=== PATIENT | female | born 2000 | race Caucasian/White ===

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

== ENCOUNTER 2018-08-04 07:22 | Emergency (ER) | payer SELFPAY ==
[2018-08-04 07:37] VITALS: BP 153/77
[2018-08-04] MEDS ORDERED: Ibuprofen TAB* 600 MG PO ONE (07:47)
--- NOTE | 2018-08-04 07:52 | UC ---
Throat Pain/Nasal Ron HPI - HPI Summary HPI Summary: 17-year-old female comes in with a chief complaint of bodyaches fevers chills sore throat ear pain cough chest congestion. Started 2 days ago. She complains of neck pain and back pain along with all of her body aches. Her boyfriend is ill with a similar condition. She took ibuprofen last night which did help with the body aches. - History of Current Complaint Chief Complaint: UCRespiratory Stated Complaint: ACHE,FEVER,ST, BI LAT EAR PAIN Time Seen by Provider: 08/04/18 07:47 Hx Last Menstrual Period: 07/14/18 Pain Intensity: 8 - Allergies/Home Medications Allergies/Adverse Reactions: Allergies Allergy/AdvReac Type Severity Reaction Status Date / Time lamotrigine Allergy Unknown Verified 08/04/18 07:38 Reaction Details Home Medications: Home Medications Dm/PE/Acetaminophen/Doxylamine [Vicks Nyquil Severe Cold-Flu] 1 each PO ONCE PRN 08/04/18 [History Confirmed 08/04/18] PMH/Surg Hx/FS Hx/Imm Hx Previously Healthy: Yes - Surgical History Surgical History: None - Family History Known Family History: Positive: None - Social History Alcohol Use: Occasionally Substance Use Type: None Substance Use Comment - Amount & Last Used: hx mj Smoking Status (MU): Never Smoked Tobacco - Immunization History Most Recent Influenza Vaccination: 2011 Most Recent Pneumonia Vaccination: never Review of Systems All Other Systems Reviewed And Are Negative: Yes Constitutional: Positive: Fever, Chills Skin: Positive: Negative Eyes: Positive: Negative ENT: Positive: Sore Throat, Ear Ache, Nasal Discharge, Sinus Congestion, Sinus Pain/Tenderness Respiratory: Positive: Cough Cardiovascular: Positive: Negative Gastrointestinal: Positive: Negative Motor: Positive: Negative Neurovascular: Positive: Negative Musculoskeletal: Positive: Myalgia Neurological: Positive: Headache Psychological: Positive: Negative Is Patient Immunocompromised?: No Physical Exam Triage Information Reviewed: Yes Appearance: No Pain Distress, Well-Nourished, Ill-Appearing - mild Vital Signs: Initial Vital Signs Temp 98.3 F 08/04/18 07:33 Pulse 125 08/04/18 07:33 Resp 22 08/04/18 07:33 BP 153/77 08/04/18 07:33 Pulse Ox 98 08/04/18 07:33 Vital Signs Reviewed: Yes Eye Exam: Normal Eyes: Positive: Conjunctiva Clear ENT: Positive: Pharyngeal erythema, Nasal congestion, Nasal drainage, TM bulging - rt, TM red - rt, Uvula midline. Negative: Tonsillar exudate Neck exam: Normal Neck: Positive: Supple - pain with flexion but, not with extension. Has generalized body aches Respiratory: Positive: Lungs clear, Normal breath sounds, No respiratory distress Cardiovascular: Positive: Tachycardia Musculoskeletal Exam: Normal Musculoskeletal: Positive: Strength Intact, ROM Intact Neurological Exam: Normal Neurological: Positive: Alert, Muscle Tone Normal Psychological Exam: Normal Psychological: Positive: Normal Response To Family, Age Appropriate Behavior Skin Exam: Normal Throat Pain/Nasal Course/Dx - Course Course Of Treatment: Both influenza's and strep were negative. Patient received ibuprofen in the clinic without any relief of her body aches or neck and back pain. Because of the influenza's the strep being negative and patient having neck and back pain I recommended going to the emergency department for further evaluation. The possibility of meningitis was discussed with the patient and her mother. - Differential Dx/Diagnosis Provider Diagnosis: Right otitis media, Myalgia, Neck pain, Back pain Discharge - Sign-Out/Discharge Documenting (check all that apply): Patient Departure All imaging exams completed and their final reports reviewed: No Studies - Discharge Plan Condition: Stable Disposition: HOME-RECOMMEND TO ED Prescriptions: Amoxicillin/Clavulanate TAB* [Augmentin TAB 875*] 875 mg PO BID #20 tab Patient Education Materials: Ear Infection (ED), Musculoskeletal Pain (ED) Referrals: [facility] [Outside] Additional Instructions: GO DIRECTLY TO THE EMERGENCY DEPARTMENT FOR FURTHER EVALUATION. - Billing Disposition and Condition Condition: STABLE Disposition: Home-Recommend to ED
[2018-08-04 08:11] LABS: Influenza A Molecular NEGATIVE (Negative); Influenza B Molecular NEGATIVE (Negative)
== END 2018-08-04 08:44 | disposition home health service (06) ==
LOC: UCCORT 07:22
DX: M79.10 Myalgia, unspecified site (principal); M54.2 Cervicalgia; M54.9 Dorsalgia, unspecified; H66.91 Otitis media, unspecified, right ear; R05 Cough; R09.89 Other specified symptoms and signs involving the circulatory and respiratory systems; R51 Headache; R09.81 Nasal congestion; J02.9 Acute pharyngitis, unspecified; Z88.8 Allergy status to other drugs, medicaments and biological substances
CPT/HCPCS: 87651; 99212; A9270-GY; G0463

== ENCOUNTER 2019-01-20 14:37 | Emergency (ER) | payer OTHER ==
[2019-01-20 14:48] VITALS: BP 133/72
--- NOTE | 2019-01-20 14:54 | UC ---
Ear Complaint HPI - HPI Summary HPI Summary: Pt has right ear pain which started this week after swimming a lot. She has not had any recent URI symptoms. - History of Current Complaint Chief Complaint: UCEar Stated Complaint: RT EAR COMPLAINT Time Seen by Provider: 01/20/19 14:47 Hx Obtained From: Patient Hx Last Menstrual Period: 01/15/19 ?: No Onset/Duration: Gradual Onset Severity Initially: Mild Severity Currently: Moderate Pain Intensity: 8 Aggravating Factors: Other - Pressure Alleviating Factors: Nothing - Allergies/Home Medications Allergies/Adverse Reactions: Allergies Allergy/AdvReac Type Severity Reaction Status Date / Time lamotrigine Allergy Unknown Verified 01/20/19 14:49 Reaction Details Home Medications: Home Medications Acetaminophen [Tylenol Extra Strength] 1 tab PO ONCE 01/20/19 [History Confirmed 01/20/19] Ibuprofen ADULT LIQ* [Motrin LIQ ADULT*] 1 tab PO ONCE 01/20/19 [History Confirmed 01/20/19] PMH/Surg Hx/FS Hx/Imm Hx Previously Healthy: Yes Respiratory History: Asthma Other Psychological History: ADHD - Surgical History Surgical History: None - Family History Known Family History: Positive: None - Social History Alcohol Use: Occasionally Substance Use Type: None Substance Use Comment - Amount & Last Used: hx mj Smoking Status (MU): Never Smoked Tobacco - Immunization History Most Recent Influenza Vaccination: 2011 Most Recent Pneumonia Vaccination: never Review of Systems All Other Systems Reviewed And Are Negative: Yes ENT: Positive: Ear Ache Is Patient Immunocompromised?: No Physical Exam Triage Information Reviewed: Yes Appearance: Well-Appearing, No Pain Distress, Well-Nourished Vital Signs: Initial Vital Signs Temp 98.4 F 01/20/19 14:45 Pulse 80 01/20/19 14:45 Resp 18 01/20/19 14:45 BP 133/72 01/20/19 14:45 Pulse Ox 100 01/20/19 14:45 Vital Signs Reviewed: Yes Eyes: Positive: Conjunctiva Clear ENT: Positive: Pharynx normal, TM red - Right TM with erythema, poor landmarks and light reflex, ear canal swollen with erythema, no drainage. Right tragus tender and with movement of the right ear. Left TM normal Neck: Positive: Supple, Nontender, No Lymphadenopathy Respiratory: Positive: Lungs clear, Normal breath sounds, No respiratory distress, No accessory muscle use Cardiovascular: Positive: RRR, No Murmur, Pulses Normal, Brisk Capillary Refill Musculoskeletal Exam: Normal Neurological Exam: Normal Psychological Exam: Normal Skin Exam: Normal Ear Complaint Course/Dx - Course Course Of Treatment: Comfortable here. - Differential Dx/Diagnosis Provider Diagnosis: Right otitis media, Right otitis externa Discharge - Sign-Out/Discharge Documenting (check all that apply): Patient Departure All imaging exams completed and their final reports reviewed: No Studies - Discharge Plan Condition: Fair Disposition: HOME Prescriptions: Amoxicillin PO (*) [Amoxicillin 875 MG (*)] 875 mg PO BID 10 Days #20 tab Neomyc/Polym/HC 1% OTIC SUSP* [Cortisporin Otic Susp 1%*] 4 drop RIGHT EAR QID 7 Days #1 btl Patient Education Materials: Otitis Externa (DC), Ear Infection (ED) Referrals: [facility] [Outside] No Primary Care Phys,NOPCP [Primary Care Provider] - Additional Instructions: Tylenol/Motrin for pain as directed. Follow up with your doctor or [facility] if no improvement in 4-5 days. Keep your ears dry and no swimming underwater for one week until better. - Billing Disposition and Condition Condition: FAIR Disposition: Home
== END 2019-01-20 15:05 | disposition home or self-care (01) ==
LOC: UCCORT 14:37
DX: H66.91 Otitis media, unspecified, right ear (principal); H60.91 Unspecified otitis externa, right ear
CPT/HCPCS: 99212; G0463

== ENCOUNTER 2019-01-26 12:12 | Emergency (ER) | payer OTHER ==
[2019-01-26 13:21] VITALS: BP 136/77
--- NOTE | 2019-01-26 13:33 | UC ---
Ear Complaint HPI - HPI Summary HPI Summary: Pt presents with c/o continued right ear pain. Pt was seen here on 01/20/19 and diagnosed with regla externa and otitis media and given PO amox and ear drops- pt is unsure what they were. Pt states that the pain and swelling have not improved and then went to [place] ER 2-3 days after being seen here and was given oxycodone and percocet for pain management. Pt was also seen by PCP a day later as her symptoms have not improved - History of Current Complaint Chief Complaint: UCEar Stated Complaint: RT EAR PAIN Time Seen by Provider: 01/26/19 13:21 Hx Obtained From: Patient Hx Last Menstrual Period: January 14 ?: No Onset/Duration: Gradual Onset, Lasting Days, Still Present, Worse Since - onset Severity Initially: Moderate Severity Currently: Severe Pain Intensity: 8 Aggravating Factors: Other - touch Associated Signs/Symptoms: Positive: Discharge, Swelling @ - Allergies/Home Medications Allergies/Adverse Reactions: Allergies Allergy/AdvReac Type Severity Reaction Status Date / Time lamotrigine Allergy Unknown Verified 01/20/19 14:49 Reaction Details PMH/Surg Hx/FS Hx/Imm Hx Previously Healthy: Yes - Surgical History Surgical History: None - Family History Known Family History: Positive: None - Social History Lives: With Family Alcohol Use: Rare Substance Use Type: None Substance Use Comment - Amount & Last Used: hx mj Smoking Status (MU): Never Smoked Tobacco Have You Smoked in the Last Year: No - Immunization History Most Recent Influenza Vaccination: 2011 Most Recent Pneumonia Vaccination: never Review of Systems All Other Systems Reviewed And Are Negative: Yes Constitutional: Positive: Negative Skin: Positive: Negative Eyes: Positive: Negative ENT: Positive: Ear Ache - right ear, swelling and small amount of yellow/clear discharge Respiratory: Positive: Negative Cardiovascular: Positive: Negative Gastrointestinal: Positive: Negative Genitourinary: Positive: Negative Motor: Positive: Negative Neurovascular: Positive: Negative Musculoskeletal: Positive: Negative Neurological: Positive: Negative Psychological: Positive: Negative Is Patient Immunocompromised?: No Physical Exam Triage Information Reviewed: Yes Appearance: Well-Appearing, Pain Distress - with ear exam Vital Signs: Initial Vital Signs Temp 97.6 F 01/26/19 13:15 Pulse 78 01/26/19 13:15 Resp 18 01/26/19 13:15 BP 136/77 01/26/19 13:15 Pulse Ox 100 01/26/19 13:15 Vital Signs Reviewed: Yes Eye Exam: Normal ENT: Positive: Other - right ear outer canal swollen with small amount of clear yellow discharge, tragal tenderness Dental Exam: Normal Neck: Positive: Enlarged Nodes @ - right submaxillary Respiratory Exam: Normal Cardiovascular Exam: Normal Musculoskeletal Exam: Normal Neurological Exam: Normal Psychological Exam: Normal Skin Exam: Normal Ear Complaint Course/Dx - Differential Dx/Diagnosis Differential Diagnosis/HQI/PQRI: Cellulitis, Otitis Externa Provider Diagnosis: Otitis externa Discharge - Sign-Out/Discharge Documenting (check all that apply): Patient Departure All imaging exams completed and their final reports reviewed: No Studies - Discharge Plan Condition: Stable Disposition: HOME Prescriptions: Neomyc/Polym/HC 1% OTIC SUSP* [Cortisporin Otic Susp 1%*] 4 drop RIGHT EAR Q6H 7 Days #1 btl predniSONE TAB* [Deltasone 20 MG TAB*] 20 mg PO DAILY #4 tab Patient Education Materials: Otitis Externa (ED) Referrals: Pedro Luis Galvan MD [Medical Doctor] - As Soon As Possible Genia Corbett NP [Primary Care Provider] - As Soon As Possible Soto Bentley MD [Medical Doctor] - As Soon As Possible Additional Instructions: Please follow up with either of the ENT specialists we have provided for you. - Billing Disposition and Condition Condition: STABLE Disposition: Home
== END 2019-01-26 13:44 | disposition home or self-care (01) ==
LOC: UCCORT 12:12
DX: H60.91 Unspecified otitis externa, right ear (principal)
CPT/HCPCS: 99212; G0463

== ENCOUNTER 2019-02-04 16:06 | Emergency (ER) | payer OTHER ==
--- NOTE | 2019-02-04 16:38 | UC ---
Ear Complaint HPI - HPI Summary HPI Summary: Patient is a 18 year old female , who present today with for right ear pain. She has been seen here on 01/20- treated with amoxicillin and cortisporin for otitis media and externa, retruned again on 01/26 as it was not getting better and treated with cortisoporin and prednisone for otitis externa and referred to ENT ,that helped and her pain returned again today . Also seen in ER before visit and also saw PCP and plan was to follow up with ENT and has not seen ENT yet and has no scheduled appointment . Denies any fever, chills, cough, chest pain or shortness of breath . Denies any abdominal pain , nausea or vomiting , diarrhea or constipation. She reports that she was swimming a lot and likely got it from that and has not gone swimming since the symptom onset . - History of Current Complaint Stated Complaint: R EAR PAIN Time Seen by Provider: 02/04/19 16:29 Hx Obtained From: Patient Hx Last Menstrual Period: January 14 ?: No - Allergies/Home Medications Allergies/Adverse Reactions: Allergies Allergy/AdvReac Type Severity Reaction Status Date / Time lamotrigine Allergy Unknown Verified 01/20/19 14:49 Reaction Details PMH/Surg Hx/FS Hx/Imm Hx - Additional Past Medical History Additional PMH: Past Medical History:Asthma, ADHD, Depression,anxiety Past Surgical history: none Family history: non contributory Social history; Non smoker, rare alcohol use , [facility]. Previously Healthy: Yes - Surgical History Surgical History: None - Family History Known Family History: Positive: None, Non-Contributory - Social History Alcohol Use: Rare Substance Use Type: None Substance Use Comment - Amount & Last Used: hx mj Smoking Status (MU): Never Smoked Tobacco Have You Smoked in the Last Year: No - Immunization History Most Recent Influenza Vaccination: 2011 Most Recent Pneumonia Vaccination: never Review of Systems All Other Systems Reviewed And Are Negative: Yes Constitutional: Positive: Negative Skin: Positive: Negative Eyes: Positive: Negative ENT: Positive: Ear Ache - right ear Respiratory: Positive: Negative Cardiovascular: Positive: Negative Gastrointestinal: Positive: Negative Genitourinary: Positive: Negative Motor: Positive: Negative Neurovascular: Positive: Negative Musculoskeletal: Positive: Negative Neurological: Positive: Negative Psychological: Positive: Negative Is Patient Immunocompromised?: No Physical Exam - Summary Physical Exam Summary: Vital Signs Reviewed: Yes A+Ox3, no distress Eyes: Conjunctiva Clear ENT: Hearing grossly normal . Right external auditory canal with erythema and tenderness, there is yellowish discharge. Right TM bnot visualized well. Left EAC and TM normal . Pain with palpation of tragus on right No pharyngeal erythema or exudates. No lymphadenopathy. neck: supple Respiratory: lungs clear to auscultation bilaterally . Cardiovascular: RRR, S1S2 normal , no murmur Abdomen: soft, non tender, BS+, no guarding , rigidity or rebound tenderness noted. Musculoskeletal Exam: SALAZAR x 4 without difficulty Neurological: Positive: Alert, ambulatory without difficulty Psychological: Positive: Normal Response To Family Skin: Positive: no rash, no ecchymosis Triage Information Reviewed: Yes Vital Signs Reviewed: Yes Ear Complaint Course/Dx - Course Course Of Treatment: During the visit today, we discussed the findings and further plan to treat it with oral antibiotics and ear drops. Strongly recommend to follow up with ENT. . I will prescribe the medication to the pharmacy . Patient expressed understanding . - Differential Dx/Diagnosis Provider Diagnosis: Otitis externa of right ear Discharge - Sign-Out/Discharge Documenting (check all that apply): Patient Departure All imaging exams completed and their final reports reviewed: No Studies - Discharge Plan Condition: Stable Disposition: HOME Prescriptions: Cephalexin CAP* [Keflex CAP*] 500 mg PO QID 10 Days #40 cap Ciproflox/Dexameth OTIC.SUSP* [Ciprodex OTIC.SUSP*] 1 drop RIGHT EAR BID 10 Days #1 btl Patient Education Materials: Otitis Externa (ED) Referrals: Pedro Luis Galvan MD [Medical Doctor] - VICTORINA Becerril [Primary Care Provider] - 1 Week Additional Instructions: Start using ear drops and oral antibiotics as been prescribed to the pharmacy . Follow up with your primary care doctor in 1 week. Please follow up with ENT in 2 to 3 days. Patients blood pressure slightly high in Urgent care today , plan follow up with PCP for better control Return to Urgent care / ER if symptoms get worse. - Billing Disposition and Condition Condition: STABLE Disposition: Home
[2019-02-04 16:44] VITALS: BP 134/74
--- NOTE | 2019-02-06 11:24 | UC ---
- Progress Note Progress Note: Call placed to Pharmacist at 11:20a. Record from pertinent [facility] encounter reviewed. Rx for cortisporin otic susp. Course/Dx - Diagnoses Provider Diagnoses: Otitis externa of right ear Discharge - Sign-Out/Discharge Documenting (check all that apply): Post-Discharge Follow Up All imaging exams completed and their final reports reviewed: No Studies - Discharge Plan Condition: Stable Disposition: HOME Prescriptions: Cephalexin CAP* [Keflex CAP*] 500 mg PO QID 10 Days #40 cap Ciproflox/Dexameth OTIC.SUSP* [Ciprodex OTIC.SUSP*] 1 drop RIGHT EAR BID 10 Days #1 btl Patient Education Materials: Otitis Externa (ED) Referrals: Pedro Luis Galvan MD [Medical Doctor] - VICTORINA Becerril [Primary Care Provider] - 1 Week Additional Instructions: Start using ear drops and oral antibiotics as been prescribed to the pharmacy . Follow up with your primary care doctor in 1 week. Please follow up with ENT in 2 to 3 days. Patients blood pressure slightly high in Urgent care today , plan follow up with PCP for better control Return to Urgent care / ER if symptoms get worse. - Billing Disposition and Condition Condition: STABLE Disposition: Home
== END 2019-02-04 17:06 | disposition home or self-care (01) ==
LOC: UCCORT 16:06
DX: H60.91 Unspecified otitis externa, right ear (principal)
CPT/HCPCS: 99212; G0463

== ENCOUNTER 2019-07-15 16:22 | Emergency (ER) | payer OTHER ==
[2019-07-15 16:54] VITALS: BP 139/81
--- NOTE | 2019-07-15 17:26 | UC ---
Abdominal Pain Female HPI - HPI Summary HPI Summary: 18-year-old female who complains of abdominal pain starting last evening mostly in the right lower quadrant. She denies any urinary symptoms. She is sexually active with one partner. She denies any abnormal vaginal discharge. She denies fever or chills. She states she has eaten today however her appetite is not what it normally is. She states the right lower quadrant pain has worsened today and now radiates around to her right back at times. She states when it radiates it's a sharp pain. - History of Current Complaint Chief Complaint: UCAbdominalPain Stated Complaint: SHARP PAINS RIGHT SIDE TO BACK Time Seen by Provider: 07/15/19 17:12 Hx Obtained From: Patient Hx Last Menstrual Period: ended 07/13/19 ?: No Onset/Duration: Gradual Onset, Other - Started last evening Timing: Constant Severity Initially: Mild Severity Currently: Moderate Pain Intensity: 5 Location: Discrete At: RLQ Radiates: Yes Radiates to: Back Character: Aching, Sharp Aggravating Factor(s): Nothing Alleviating Factor(s): Nothing Associated Signs and Symptoms: Positive: Negative Allergies/Adverse Reactions: Allergies Allergy/AdvReac Type Severity Reaction Status Date / Time lamotrigine Allergy Unknown Verified 07/15/19 16:47 Reaction Details Home Medications: Home Medications QUEtiapine TAB* [Seroquel 25 MG TAB*] 1 tab DAILY 07/15/19 [History Confirmed ] PMH/Surg Hx/FS Hx/Imm Hx Previously Healthy: Yes Respiratory History: Asthma Psychological History: Anxiety, Depression - Surgical History Surgical History: None - Family History Known Family History: Positive: None, Non-Contributory - Social History Alcohol Use: Rare Substance Use Type: Marijuana Substance Use Comment - Amount & Last Used: occasionally Smoking Status (MU): Never Smoked Tobacco Have You Smoked in the Last Year: No - Immunization History Most Recent Influenza Vaccination: 2011 Most Recent Pneumonia Vaccination: never Review of Systems All Other Systems Reviewed And Are Negative: Yes Gastrointestinal: Positive: Abdominal Pain - Abdominal pain mostly in the right lower quadrant which occasionally radiates around to the back as a sharp shooting pain. No history of kidney stones. She does have a history of a right ovarian cyst. Is Patient Immunocompromised?: No Physical Exam Triage Information Reviewed: Yes Appearance: Well-Appearing, No Pain Distress, Well-Nourished Vital Signs: Initial Vital Signs Temp 98.3 F 07/15/19 16:48 Pulse 85 07/15/19 16:48 Resp 16 07/15/19 16:48 BP 139/81 07/15/19 16:48 Pulse Ox 100 07/15/19 16:48 Vital Signs Reviewed: Yes Eyes: Positive: Conjunctiva Clear ENT: Positive: Hearing grossly normal, Pharynx normal, TMs normal, Uvula midline Neck: Positive: Supple, Nontender, No Lymphadenopathy Respiratory: Positive: Lungs clear, Normal breath sounds, No respiratory distress, No accessory muscle use Cardiovascular: Positive: RRR, No Murmur, Pulses Normal, Brisk Capillary Refill Abdomen Description: Positive: No Organomegaly, Soft, Guarding, McBurney's Point Tenderness - Mild tenderness with mild guarding and right lower quadrant. , Other: - Patient also is mildly tender in the epigastric area as well as the left lower quadrant. No rigidity, rebound or guarding.. Negative: CVA Tenderness (R), CVA Tenderness (L), Distended, Hepatomegaly, Splenomegaly Bowel Sounds: Positive: Present Musculoskeletal Exam: Normal Neurological Exam: Normal Psychological Exam: Normal Skin Exam: Normal Abd Pain Female Course/Dx - Course Course Of Treatment: Patient appears comfortable here however she is quite tender in the right lower quadrant of her abdomen therefore I feel this needs to be further evaluated in the emergency room where they can offer lab testing, CT with contrast and/or sonogram as necessary. Patient is agreeable to this plan of action. I advised her no eating or drinking until she is evaluated. - Differential Dx/Diagnosis Provider Diagnosis: RLQ abdominal pain Discharge ED - Sign-Out/Discharge Documenting (check all that apply): Patient Departure All imaging exams completed and their final reports reviewed: No Studies - Discharge Plan Condition: Fair Disposition: HOME-RECOMMEND TO ED Referrals: Sherwin Mcfarlane PA [Primary Care Provider] - Additional Instructions: After the evaluation by the nurse practitioner, it is recommended that you go to the emergency room for further evaluation of the abdominal pain where you should receive additional testing that can be completed in the emergency department. It is recommended that you go directly to the emergency department. This evaluation may include blood work or imaging. This testing will be directed and decided by the provider that evaluates you within the emergency department. If pain becomes worse, you feel lightheaded or you develop uncontrolled vomiting, or have any other concerns while you are driving to the emergency room, please clod puller and call 911. No eating or drinking until you are evaluated in the emergency room. - Billing Disposition and Condition Condition: FAIR Disposition: Home-Recommend to ED
== END 2019-07-15 17:25 | disposition home health service (06) ==
LOC: UCCORT 16:22
DX: R10.31 Right lower quadrant pain (principal); J45.909 Unspecified asthma, uncomplicated; F41.9 Anxiety disorder, unspecified; F32.9 Major depressive disorder, single episode, unspecified; Z88.8 Allergy status to other drugs, medicaments and biological substances; Z79.899 Other long term (current) drug therapy
CPT/HCPCS: 81003; 84702; 99212; G0463